=== PATIENT | male | born 2000 | race Caucasian/White ===

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

== ENCOUNTER 2019-10-02 12:55 | Outpatient (CLI) | payer OTHER ==
--- NOTE | 2019-10-02 13:51 | MRI ---
MRI OF THE RIGHT HAND WITHOUT CONTRAST: INDICATION: Right hand pain. COMPARISON: Right wrist radiograph dated August 31, 2019. FINDINGS: There is a heterogeneous T1 and T2 signal involving the mid pole and proximal pole of the scaphoid wi th suspicion for a very tiny avulsion fracture from the proximal pole and image 7 of series 7. The signal abnormalities involving the mid pole and proximal pole of the scaphoid is largely hypointense on T1 and largely hyperintense on T2. This is most suspicious for subacute healing fracture. There is a subcortical fracture involving the dorsal base of the long finger metacarpal. There is some mild central contusion also suspect involving the dorsal base of the index metacarpal as well as portions of the trapezium and trapezoid carpal bones. The visualized flexor and extensor tendons are within normal limits. The visualized median nerve is normal-appearing. The dorsal and volar aspects of the scapholunate ligament are likely intact. Visualized aspects of the TFC appear intact. IMPRESSION: 1. Nondepressed nondisplaced fracture involving the dorsal base of the long finger metacarpal. 2. Contusion involving the dorsal base of the index finger metacarpal, dorsal aspect the trapezoid an d trapezium. 3. Findings suspicious for a healing fracture involving the proximal pole of the scaphoid. Small susp ected proximal pole avulsion fracture is situated between the proximal pole of the scaphoid and the radial aspect of the lunate. This is likely an avulsion injury from the interosseous band of the scap holunate ligament. Correlation with radiographs is recommended. Transcribed Date/Time: 10/02/2019 1:56 PM
== END 2019-10-02 12:56 | disposition home or self-care (01) ==
LOC: TBSIIMAG 12:55
PROVIDERS: ATTEND Orthopaedic Surgery
DX: M79.641 Pain in right hand (principal); S62.642A Nondisplaced fracture of proximal phalanx of right middle finger, initial encounter for closed fracture; S60.021A Contusion of right index finger without damage to nail, initial encounter

== ENCOUNTER 2020-01-29 10:34 | Outpatient (CLI) | payer OTHER ==
--- NOTE | 2020-01-29 13:42 | MRI ---
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 FINDINGS: The exam is compared to a prior MRI of the right hand dated 10/02/2019. FINDINGS: There is no appreciable healing involving the ununited proximal avulsion fracture. There is low T1 a nd T2 signal intensity involving the avulsed fracture fragment likely consistent with changes of avas cular necrosis of the proximal wrist. There is some heterogeneous T2 signal involving the mid waist and residual proximal pole of the scaphoid with diminished T1 signal intensity which can be seen with early osteonecrosis/marrow edema. Visualized flexor and extensor tendons appear within normal limit s. The TFC is intact. The median nerve appears within normal limits. The ulnar neurovasculature ap pears within normal limits. There has been some interval healing involving the fracture involving th e dorsal base of the long finger metacarpal. Contusions involving the index finger metacarpal, trape zium, and trapezoid have intervally healed. Scapholunate and lunatotriquetral ligaments appear intac t. IMPRESSION: 1. 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 There are some residual edematous changes/early avascular necrosis involving the mid waist and remai sebastian proximal pole of the scaphoid present. 2. Interval healing of the contusions involving the index finger metacarpal, trapezium, and trapezoi d. There near-complete healing involving the dorsal base of the long finger metacarpal fracture. So me mild residual marrow edema remains within the proximal aspect of the long finger metacarpal. POS: [facility]
== END 2020-01-29 10:35 | disposition home or self-care (01) ==
LOC: SCSMRI 10:34
PROVIDERS: ATTEND Orthopaedic Surgery Hand Surgery
DX: S62.031A Displaced fracture of proximal third of navicular [scaphoid] bone of right wrist, initial encounter for closed fracture (principal); M87.039 Idiopathic aseptic necrosis of unspecified carpus; S62.310D Displaced fracture of base of second metacarpal bone, right hand, subsequent encounter for fracture with routine healing; S60.021D Contusion of right index finger without damage to nail, subsequent encounter; R60.0 Localized edema

== ENCOUNTER 2020-02-23 07:52 | Outpatient (CLI) | payer OTHER ==
[2020-02-23 10:40] LABS: #Eosinphils 0.2 thou/uL (0.0-0.7); #Lymphocytes 1.3 thou/uL (1.20-3.40); #Monocytes 0.4 thou/uL (0.11-0.59); %Eosinophils 3.2 % (0.0-10.0); %Monocytes 9.1 % (0.0-4.0); %Neutrophils 60.8 % (31.0-61.0); Hemoglobin 15.1 g/dL (14.0-18.0); Mean Corpuscular HGB CONC 34.7 g/dL (32.0-36.0); Mean Corpuscular Hemoglobin 32.3 pg (25.0-35.0); Mean Corpuscular Volume 93.1 fL (78.0-98.0); Mean Platelet Volume 7.7 fL (7.4-10.4); Platelet Count 220 thou/uL (130-400); RBC Distribution Width 11.4 % (11.5-14.5); Red Blood Cell (RBC) Count 4.69 mill/uL (4.00-5.20); White Blood Cell (WBC) Count 4.9 thou/uL (4.8-10.8)
== END 2020-02-23 07:53 | disposition home or self-care (01) ==
LOC: LABBT 07:52
PROVIDERS: ATTEND Orthopaedic Surgery Hand Surgery
DX: Z01.812 Encounter for preprocedural laboratory examination (principal); S62.031A Displaced fracture of proximal third of navicular [scaphoid] bone of right wrist, initial encounter for closed fracture; M87.031 Idiopathic aseptic necrosis of right radius
CPT/HCPCS: 85025

== ENCOUNTER 2020-02-26 09:05 | Outpatient (CLI) | payer OTHER ==
[2020-02-26 18:44] LABS: SARS-CoV-2 MS2 Positive; SARS-CoV-2 N Gene Negative; SARS-CoV-2 S Gene Negative; SARS-CoV-2 orf1ab Negative
== END 2020-02-26 09:06 | disposition home or self-care (01) ==
LOC: LABBT 09:05
PROVIDERS: ATTEND Orthopaedic Surgery Hand Surgery
DX: Z01.812 Encounter for preprocedural laboratory examination (principal); Z11.59 Encounter for screening for other viral diseases; S62.031A Displaced fracture of proximal third of navicular [scaphoid] bone of right wrist, initial encounter for closed fracture; M87.031 Idiopathic aseptic necrosis of right radius
CPT/HCPCS: 87635; U0003

== ENCOUNTER 2020-02-27 05:32 | Day surgery (SDC) | payer OTHER ==
[2020-02-23 10:09] VITALS: BMI 25.6
[2020-02-27] MEDS ORDERED: Thrombin 5000 UNITS/5 ML VIAL ONE (06:35)
[2020-02-27] MEDS ORDERED: Bupivacaine PF 0.5% 30 ML VIAL ONE (06:35)
[2020-02-27] MEDS ORDERED: Bacitracin Zinc Ointment 30 gm TUBE ONE (06:35)
[2020-02-27] MEDS ORDERED: Midazolam HCl 2 mg/2 ml Vial ONE (06:39)
[2020-02-27] MEDS ORDERED: Fentanyl 100 MCG/2 ML VIAL ONE ×3 (06:39→11:40)
[2020-02-27] MEDS ORDERED: Ondansetron PF 4 MG/2 ML Vial ONE (10:23)
[2020-02-27] MEDS ORDERED: PROPOFOL 200 MG/20 ML VIAL ONE (10:23)
[2020-02-27] MEDS ORDERED: Lidocaine 1% PF 5 ML VIAL ONE (10:23)
[2020-02-27] MEDS ORDERED: Dexamethasone 20 MG/5 ML VIAL ONE (10:23)
[2020-02-27] MEDS ORDERED: Ketorolac Tromethamine 30 MG/ML VIAL ONE (11:02)
[2020-02-27] MEDS ORDERED: HYDROcodone/Acetaminophen 5/325 mg Tablet ONE (13:19)
--- NOTE | 2020-02-27 15:53 | RAD ---
INTRAOPERATIVE IMAGING OF THE RIGHT WRIST: DATE: 02/27/2020. COMPARISON: None available. HISTORY: ORIF right scaphoid. FINDINGS: Seven intraoperative images are provided. Images demonstrate postoperative instruments along the august maci aspect of the wrist. Multiple postoperative clips overlie the capitate, lunate, and distal radiu s. IMPRESSION: Intraoperative imaging as above. POS: [facility]
--- NOTE | 2020-02-28 09:29 | OP ---
DATE OF PROCEDURE: 02/27/2020 PREOPERATIVE DIAGNOSIS: Nonunion open avulsion fracture, approximately 1.5 cm long and 5 mm wide occupying the central portion of the scaphoid attachment of the scapholunate ligament. POSTOPERATIVE DIAGNOSIS: Nonunion open avulsion fracture, approximately 1.5 cm long and 5 mm wide occupying the central portion of the scaphoid attachment of the scapholunate ligament. FINDINGS: 1. Punctate bleeding from the scaphoid distal to this part, the remaining portions of the previous fracture have healed except for this small piece. 2. There was a scapholunate defect approximately 2 to 3 mm just at the opening of this fragment subcutaneous to the chondral surface. PROCEDURES PERFORMED: 1. Removal and open treatment of scaphoid nonunion, fragment excision and curettage of previous cavity to include drilling to check for punctate bleeding. 2. Scapholunate ligament reconstruction back to the scaphoid with heavy anchor. 3. Pinning of the scapholunate joint under C-arm supervision. 4. Application of long-arm splint. TOURNIQUET TIME: 120 minutes. 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 Initially casted and had an MRI, which was equivocal for AVN, but showed the fracture fragment. He did not want to have surgery because he wanted to enjoy his baseball season and play, but since the season did not occur due to COVID-19, he returned our clinic, where we found on radiographs, the fracture did not heal and we had to seek him a second MRI, which showed at this time bone marrow edema versus avascular necrosis and most of the proximal pole with the fragment still there, partially united and the rest ununited. For this reason, operative intervention, secondary to the fact he still had pain, was indicated. He had already lost some motion in the preoperative time. DESCRIPTION OF PROCEDURE: After successful general endotracheal anesthesia, the limb was prepped and draped. The patient had the right upper extremity prepped and draped. He then had the time-out done appropriately. We exsanguinated the limb using gravity for 10 minutes and then inflated the tourniquet to 200 mmHg to be able to identify the vascular tree in case we had to do a vascularized graft. We then made a zigzag incision centered over the interval between the second and the third dorsal compartment, identified the superficial radial nerve, protected it, identified an intracompartmental extraretinacular 2-3 and 1-2 vessels, in case we needed to do bone graft, I spared them. We opened the retinaculum just ulnar to the 2-3 intracompartmental extraretinacular vessel, and developed a plane, so we could retract the extensor pollicis longus radially. We made a semicircle-shaped capsulotomy dissecting and leaving it based ulnar, and we could visualize the whole scaphoid and lunate. It was here, we saw a small defect in the scapholunate ligament, but we could not find a true defect in the chondral surface. We brought C-arm to the field, identified 2 planes in the chondral defect and made a small hole with Algaaciq blade along that just dorsal to this scapholunate small tear and indeed made a 6-mm bone window, chondral window, and found the loose piece. We developed an interval with a Algaaciq blade between the loose piece and the scaphoid ligament, then curetted out the cavity to make sure there was no further debris and irrigated. The piece was brought out in three pieces and totaled when put together [id number] 1.2 cm long, 3.5 mm wide, and 3 mm thick. After this, we drilled the scaphoid just before we released the tourniquet and saw that there was a punctate bleeding in the remainder portion of proximal pole indicative of vascular supply intact and there was no further fracture defect seen. This includes clinically and radiographically with the C-arm. We then placed a mini Mitek anchor into the scaphoid, put it in at appropriate angle to maximize reconstruction back to the defect and on radiographs, it was in the scaphoid, covered completely by bone and cartilage and not in the joint. Then, we were able to compress with a small clamp, Synthes 399.99 clamp, the scapholunate joint and maintained the appropriate sagittal plane orientation and then while this was done, we passed one K-wire from the scaphoid to the lunate and clinically they were touching. The remainder portion of the graft was intact and now buckled somewhat as we removed the tension on it normally. We then repaired the scapholunate ligament 5 mm wide piece back into the defect and tied it with a heavy suture on the anchor. We cut the suture and the tourniquet was down with excellent hemostasis. The wire was in excellent position on C-arm, we cut the wire to 2 mm below the skin with a small wireless development manager. We then repaired the capsule with a running 3-0 Prolene in mattress pattern, repaired the retinaculum with a running 2-0 Vicryl in a simple running pattern without undue tension with the wrist in approximately 25 degrees of palmar flexion. We then repaired the skin in 2 layers with an interrupted 4-0 Monocryl undyed and a 4-0 nylon in mattress interrupted pattern for the epidermal closure. We had given the patient 10 mL of 0.5% Marcaine before the procedure beginning. After the incision, we gave him the remaining 10 mL. As before, we put the dressing on. Dressing with bacitracin, Adaptic, 4 x 4, Kerlix, and a sugar-tong splint in neutral position with the digits free. He left the operating room without evidence of anesthetic or operative complication. Job ID: [id number]
== END 2020-02-27 13:55 | disposition home or self-care (01) ==
LOC: SDC 05:32
PROVIDERS: ATTEND Orthopaedic Surgery Hand Surgery
PROC: 0PH Upper Bones, Insertion (ICD-10-PCS; principal; 2020-02-27)
DX: S62.031A Displaced fracture of proximal third of navicular [scaphoid] bone of right wrist, initial encounter for closed fracture (principal); M87.237 Osteonecrosis due to previous trauma of right carpus; Z91.010 Allergy to peanuts; Z91.018 Allergy to other foods; X58.XXXA Exposure to other specified factors, initial encounter; Y93.64 Activity, baseball
CPT/HCPCS: 76000; C1713; J0690; J1100; J1885; J2001; J2250; J2405; J2704; J3010; J3370; S0020